=== PATIENT | male | born 1950 | race Caucasian/White ===

== ENCOUNTER 2021-08-31 13:26 | Inpatient (IN) | payer MEDICARE, SELFPAY ==
[2021-08-31] VITALS (47 sets, daily range): BP systolic 117–175; BP diastolic 61–98; PULSE 59–127; RESP 12–36; TEMP 36.4; O2SAT 90–96; BMI 23.8
--- NOTE | 2021-08-31 14:13 | ECG_ITS ---
[facility] Test Date: 2021-08-31 Pat Name: Rg Nye Department: Room: 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 Measurements Intervals [place] Rate: 72 P: 37 ID: 192 QRS: -18 QRSD: 101 T: 23 QT: 440 QTc: 483 Interpretive Statements SINUS RHYTHM NONSPECIFIC T-WAVE ABNORMALITY PROLONGED QT INTERVAL No previous ECG available for comparison Electronically Signed On 09-01-2021 4:47:59 [address] ENGINEER by Kelton Gutierrez M.D. [id number]
--- NOTE | 2021-08-31 14:18 | USCV_ITS ---
Popeye Rg Age: 71 Gender: M : 1950 Exam Date: 08/31/2021 15:13 Ordering Phys: Aureliano Smith MD Technologist: DARLENE Exam Location: [facility] [place] Indication: NSTEMI COVID DVT BP: / HR: 78 Rhythm: Sinus Technical Quality: Adequate MEASUREMENTS (Male / Female) Normal Values 2D ECHO LV Diastolic Diameter PLAX 3.0 cm 4.2 - 5.9 / 3.9 - 5.3 cm LV Systolic Diameter PLAX 2.2 cm IVS Diastolic Thickness 1.3 cm 0.6 - 1.0 / 0.6 - 0.9 cm IVS Systolic Thickness 1.7 cm LVPW Diastolic Thickness 1.2 cm 0.6 - 1.0 / 0.6 - 0.9 cm LVPW Systolic Thickness 1.4 cm LVOT Diameter 1.9 cm LV Ejection Fraction 2D Teich 57.4 % LV Ejection Fraction MOD 2C 42.0 % LV Ejection Fraction 2C AL 41.9 % LA Diameter 2.5 cm LA Width 3.5 cm LA Height 3.5 cm RA Width 3.6 cm RA Height 3.8 cm Aorta at Sinotubular Diameter 2.2 cm M-MODE Aortic Annulus Diameter 3.2 cm LA Ao Ratio MM 0.7 MV E Point Septal Separation 0.0 cm DOPPLER AV Peak Velocity 89.0 cm/s LVOT Peak Velocity 60.0 cm/s AV Area Cont Eq vti 2.3 cm squared AV Area Cont Eq pk 2.0 cm squared MV Area PHT 2.2 cm squared Mitral E to A Ratio 0.6 MV E' Velocity 24.5 cm/s Mitral E to MV E' Ratio 9.2 Mitral E to LV E' Lateral Ratio 8.7 Mitral E to LV E' Septal Ratio 9.8 TR Peak Velocity 191.0 cm/s TR Peak Gradient 14.6 mmHg TV Peak E Velocity 39.0 cm/s Right Atrial Pressure 5.0 mmHg Pulmonary Artery Systolic Pressu 19.6 mmHg PV Peak Velocity 87.0 cm/s RV Acceleration Time 0.1 s RV Ejection Time 0.3 s RV AcT/ET 0.2 FINDINGS Left Ventricle Normal left ventricular size and systolic function, EF 55 %. Mild left ventricular hypertrophy. No regional wall motion abnormalities. Grade I/IV diastolic dysfunction (abnormal relaxation filling pattern), normal to mildly elevated filling pressures. Right Ventricle Mildly dilated right ventricle with slightly diminished ejection fraction Right Atrium The right atrium is normal in size. Left Atrium The left atrium is normal in size. Mitral Valve Mild-moderate mitral valve regurgitation. Aortic Valve Thickened aortic valve. Tricuspid Valve Trace of tricuspid regurgitation . pulmonary artery systolic pressure is normal. This could be an underestimation because of the poor Doppler signals. Pulmonic Valve Trace pulmonary valve regurgitation. Pericardium Normal pericardium without effusion. Aorta Normal ascending aorta dimension. CONCLUSIONS Normal left ventricular size and systolic function, EF 55 %. Mild left ventricular hypertrophy. No regional wall motion abnormalities. Grade I/IV diastolic dysfunction (abnormal relaxation filling pattern), normal to mildly elevated filling pressures. Mild-moderate mitral valve regurgitation. Thickened aortic valve. Trace of tricuspid regurgitation . pulmonary artery systolic pressure is normal. This could be an underestimation because of the poor Doppler signals. No previous study is available for comparison. Dr Sergio Ponce MD [facility] (Electronically Signed) Final Date: 31 August 2021 17:31 S
--- NOTE | 2021-08-31 14:27 | PM.HP ---
Providers/Chief Complaint Admitting Physician: Aureliano Smith MD Chief Complaint: COVID History of Present Illness MAIRA MYEER is a 71 year old male with a past medical history of hypertension, prior smoker, who presents to [facility] due to shortness of breath, fatigue, malaise. Patient tells me that of August 22 he was not feeling well, having shortness of breath, fatigue, malaise, he tested positive for Covid on August 24. He continued to have worsening shortness of breath, fevers, fatigue, malaise. He denies a cardiovascular history. No history of strokes. History of smoking over 20 years ago. No history of diabetes. No recent travel. He has not been vaccinated for COVID-19. He presented to [facility] overnight, was diagnosed with COVID-19 pneumonia, with bilateral segmental and subsegmental PEs, with radiographic evidence of right heart strain with NSTEMI, hypoxic respiratory failure requiring 45 L 40%, was transferred to [facility] for further evaluation. He was given remdesivir, Decadron, therapeutic Lovenox, aspirin. Currently patient is alert oriented x3, follows all commands, currently on 45 L 40%, he tells that he is breathing better. Review of Systems Const: Reports: fever(s), body aches, fatigue and malaise; Denies: chills Eyes: Denies: change in vision or blurry vision ENMT: Denies: nasal congestion Card: Denies: chest pain, edema or lightheadedness Resp: Reports: dyspnea, non-productive cough and pain on inspiration; Denies: productive cough or wheezing GI: Denies: abdominal pain, nausea, vomiting, hematemesis, diarrhea, constipation, hematochezia or melena : Denies: flank pain, difficulty urinating, dysuria or urinary frequency Musc: Denies: neck pain or back pain Skin/Breast: Denies: rash Neuro: Denies: headache(s), dizziness or vertigo Endo: Denies: polyuria or polydipsia PFSH Acute PFSH: Medical History (Updated 08/31/21 @ 14:32 by Aureliano Smith MD) History of hypertension Surgical History (Updated 08/31/21 @ 14:30 by Aureliano Smith MD) History of cholecystectomy Family History (Updated 08/31/21 @ 14:31 by Aureliano Smith MD) Father Liver cancer Mother GI bleed Social History (Updated 08/31/21 @ 14:31 by Aureliano Smith MD) Smoking and tobacco status: former smoker Alcohol intake: never Substance/Drug Use: never Vitals/I&O/Wt Last Vital Signs Pulse 85 08/31/21 13:38 Resp 20 H 08/31/21 13:34 Pulse Ox 94 08/31/21 13:34 Physical Exam Const: COMMON NORMALS: no acute distress and patient oriented x3 GENERAL APPEARANCE: cooperative and comfortable HENMT: COMMON NORMALS: normocephalic HEAD & SCALP: normocephalic Eye: COMMON NORMALS: Equal, round and reactive pupils present and EOMs intact bilaterally GENERAL EYE: appearance normal, both eyes and all related structures PUPIL: Yes Equal, round and reactive pupils present Neck/C-Spine: COMMON NORMALS: full ROM and no lymphadenopathy THYROID: Thyroid normal Lymph: LYMPHATIC: no lymphadenopathy noted Resp: COMMON NORMALS: normal respiratory effort, No retractions, No use of accessory muscles and clear to auscultation bilaterally AUSCULTATION: diminished lung sounds diffuse Cardio: COMMON NORMALS: regular rate, regular rhythm, S1 normal heart sound present, S2 normal heart sound present, No gallops present (Cardio), No clicks present (Cardio) and No murmurs present (Cardio) RATE: regular rate RHYTHM: regular rhythm HEART SOUNDS: S1 normal heart sound present and S2 normal heart sound present GI: COMMON NORMALS: Normal to inspection, nondistended, normoactive bowel sounds present, Soft to palpation, non-tender and No hepatosplenomegaly present PALPATION: Yes Soft to palpation and Yes No hepatosplenomegaly present Extremity: COMMON NORMALS: normal to inspection, full ROM and no pedal edema Neuro: COMMON NORMALS: patient oriented x3, CN's II-XII intact bilaterally, moves all extremities and no focal motor deficits Psych: COMMON NORMALS: mental status grossly normal, Normal thought process present and cooperative THOUGHT PROCESS: Normal thought process present A&P Assessment and plan (1) Acute respiratory failure with hypoxia: -Acute hypoxic respiratory failure secondary to COVID-19 pneumonia -With evidence of acute respiratory distress syndrome -With evidence of bilateral segmental and subsegmental PEs -With evidence of right heart strain -With evidence of COVID-19 myocarditis, NSTEMI -Elevated troponins, NSTEMI, cannot rule out underlying cardiac etiology given age, hypertension, underlying cardiac history Plan: -Admit to ICU -Monitor respiratory status closely -Sputum cultures, blood cultures, urine bacterial antigen, rapid flu -Remdesivir day one of five -Decadron day one of five -Actemra one dose -Therapeutic Lovenox -Serial troponins, serial EKGs, telemetry monitoring, cardiac echo, monitor chest pain -Aspirin, statin -Continue heated high flow, can consider BiPAP therapy -Vitamin C, zinc vitamin D - budesonide, DuoNeb -Incentive spirometer, flutter valve -Full code -Lovenox for DVT prophylaxis Status: Acute (2) Bilateral pulmonary embolism: Status: Acute (3) NSTEMI (non-ST elevated myocardial infarction): Status: Acute (4) Myocarditis due to COVID-19 virus: Status: Acute (5) Acute respiratory distress syndrome: Status: Acute (6) Pneumonia due to COVID-19 virus: Status: Acute Attestations Medical Necessity Statement*: Patient requires hospitalization for acute respiratory failure with hypoxia secondary COVID-19 pneumonia, NSTEMI, bilateral PEs, COVID-19 due to myocarditis, right heart strain requiring inpatient admission, greater than two midnights, critical care time spent over 1 hour Coding Level of Care Code Acute 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
[2021-08-31] MEDS: budesonide 0.5 mg/2 mL Neb INHALATION ×2 (14:57→20:24)
[2021-08-31] MEDS: pantoprazole 40 mg SDV IVP (15:26)
[2021-08-31] MEDS: azithromycin 500 MG in sodium chloride 0.9% 250 ML 250 MG IV (15:27)
[2021-08-31] MEDS: cefepime 2,000 MG in sodium chloride 0.9% (plus) 50 ML 100 MG IV (15:27)
[2021-08-31] MEDS: FUROsemide 10 mg/mL SDV 2mL 20 MG IVP (15:27)
[2021-08-31] MEDS: enoxaparin 80 mg/0.8 mL Syringe 70 MG SUBCUT (15:28)
[2021-08-31] MEDS: dexamethasone 10 mg/mL INJ 6 MG IVP (15:29)
[2021-08-31 15:38] LABS: Estmated Average Glucose 137; Hemoglobin A1C 6.4 % (4.0-6.0)
[2021-08-31 15:52] LABS: Troponin(5th) Baseline 137 ng/L (0-15)
[2021-08-31 15:55] LABS: Thyroid Stimulating Hormone 0.29 uIU/mL (0.27-4.20)
[2021-08-31 15:56] LABS: Creatinine Clr Calc Pharmacy 74.1927
--- NOTE | 2021-08-31 16:13 | ECG_ITS ---
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 Measurements Intervals [place] Rate: 77 P: 41 NV: 194 QRS: -9 QRSD: 101 T: 22 QT: 435 QTc: 493 Interpretive Statements SINUS RHYTHM NONSPECIFIC T-WAVE ABNORMALITY PROLONGED QT INTERVAL Compared to ECG 08/31/2021 14:37:10 No significant changes Electronically Signed On 09-01-2021 4:51:[address] by Kelton Gutierrez M.D. [id number]
[2021-08-31 16:42] LABS: Influenza A by IFA Negative (Negative); Influenza B by IFA Negative (Negative)
[2021-08-31] MEDS: ascorbic acid 500 mg Tablet PO (17:28)
[2021-08-31] MEDS: docusate sodium 100 mg Capsule PO (17:28)
[2021-08-31] MEDS: vancomycin 1,000 MG in sodium chloride 0.9% 250 ML 250 MG IV (17:28)
[2021-08-31 18:06] LABS: Troponin 5 2HR Delta -3.6 ABS# (0-10)
[2021-08-31 18:10] LABS: Troponin 5 2HR 133.4 ng/L (0-15)
--- NOTE | 2021-08-31 20:13 | ECG_ITS ---
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 Measurements Intervals [place] Rate: 69 P: 49 ME: 207 QRS: -5 QRSD: 93 T: 7 QT: 448 QTc: 482 Interpretive Statements SINUS RHYTHM MODERATE T-WAVE ABNORMALITY, CONSIDER ANTERIOR ISCHEMIA [-0.1+ mV T-WAVE IN V3/V4] Compared to ECG 08/31/2021 16:42:42 Possible ischemia now present Prolonged QT interval no longer present T-wave abnormality still present Electronically Signed On 09-01-2021 4:51:15 SALES SUPPORT MANAGER by Kelton Gutierrez M.D. [id number]
[2021-08-31] MEDS: atorvastatin 40 mg Tablet PO (21:34)
[2021-08-31 21:42] LABS: Troponin 5 6HR Delta -18.7 ng/L (0-12)
[2021-08-31 21:43] LABS: Troponin 5 6HR 118.3 ng/L (0-15)
[2021-08-31 22:25] LABS: Glucose Point of Care 194 mg/dL (70-110)
[2021-09-01] VITALS (33 sets, daily range): BP systolic 109–145; BP diastolic 60–84; PULSE 52–76; RESP 17–31; TEMP 35.9–36.8; O2SAT 89–98
[2021-09-01] MEDS: pantoprazole 40 mg SDV IVP ×2 (02:00→14:35)
[2021-09-01] MEDS: cefepime 2,000 MG in sodium chloride 0.9% (plus) 50 ML 100 MG IV ×2 (02:00→14:34)
[2021-09-01 03:45] LABS: ABG PCO2 33.9 mmHg (35-45); ABG PH Result 7.53 (7.35-7.45); Arterial Blood Gas Hematocrit 54.8 % (42-52); Base Excess ABG 5.5 mmol/L (-2.0-2.0); Blood Gas Operator Identificat JB; Blood Gas Sample Site Brachial, right; Blood Gas Sample Type Arterial; Oxygen Device HAG
[2021-09-01 04:17] LABS: Basophils % 0.1 %; Hematocrit 40.4 % (42.0-52.0); Hemoglobin 13.8 g/dL (11.7-16.6); Lymphocytes # 0.7 10^3/uL (0.8-4.8); Lymphocytes % 6.9 %; Mean Corpuscular HGB Conc 34.2 g/dL (30.0-36.0); Mean Corpuscular Hemoglobin 31.8 pg (28.0-34.0); Mean Corpuscular Volume 93.1 fl (80-94); Mean Platelet Volume 10.5 fL (7.4-10.4); Monocytes # 0.5 10^3/uL (0.2-0.9); Monocytes % 4.3 %; Neutrophils # 9.53 10^3/uL (1.8-7.7); Neutrophils % 88.2 %; Nucleated Red Blood Cells % 0 %; Platelet Count 147 10^3/cmm (130-400); Red Blood Count 4.34 10^6/uL (4.1-5.3); White Blood Count 10.8 10^3/uL (4.0-10.0)
[2021-09-01] MEDS: vancomycin 1,000 MG in sodium chloride 0.9% 250 ML 250 MG IV ×2 (04:28→16:29)
[2021-09-01] MEDS: enoxaparin 80 mg/0.8 mL Syringe 65 MG SUBCUT ×2 (04:29→16:30)
[2021-09-01 04:30] LABS: Lactic Sepsis W/Reflex 1.6 mmol/L (0.5-2.2)
[2021-09-01 04:31] LABS: Alanine Aminotransferase 44 U/L (0-41); Albumin Level 2.7 g/dL (3.5-5.2); Alkaline Phosphatase 66 IU/L (40-130); Blood Urea Nitrogen 20 mg/dL (8-23); Calcium 7.8 mg/dL (8.5-10.5); Carbon Dioxide 21 mmol/L (22-29); Chloride 103 mmol/L (98-107); Creatinine Clr Calc Pharmacy 74.1927; Globulin 3.2 g/dL (1.3-4.6); Glucose 156 mg/dL (65-115); Magnesium 2.3 mg/dL (1.7-2.3); Osmolality Calculated 298 mOsm/kg (285-295); Phosphorus 2.4 mg/dL (2.5-4.5); Sodium 141 mmol/L (136-145); Total Bilirubin 0.7 mg/dL (0.15-1.2); Total Protein 5.9 g/dL (6.6-8.7)
[2021-09-01 04:56] LABS: Anion Gap 21.9 (5-19); Aspartate Amino Transferase 40 U/L (0-40); Potassium 4.9 mmol/L (3.5-5.1)
[2021-09-01 05:04] LABS: INR 1.24 (0.8-1.2)
[2021-09-01] MEDS: remdesivir 100 MG in sodium chloride 0.9% (100 ml) 80 ML IV (05:59)
[2021-09-01 08:22] LABS: Glucose Point of Care 138 mg/dL (70-110)
[2021-09-01] MEDS: budesonide 0.5 mg/2 mL Neb INHALATION ×2 (08:41→19:46)
[2021-09-01 09:57] LABS: NT Pro B Type Natriuretic Pept 2218 pg/mL (0-125); Procalcitonin 0.64 ng/mL (0-0.5)
[2021-09-01] MEDS: zinc gluconate 50 mg Tablet PO (10:02)
[2021-09-01] MEDS: cholecalciferol (vitamin D3) 1,000 unit Tablet 1000 UNIT PO (10:02)
[2021-09-01] MEDS: ascorbic acid 500 mg Tablet PO ×2 (10:02→17:20)
[2021-09-01] MEDS: aspirin 81 mg EC Tablet PO (10:03)
--- NOTE | 2021-09-01 10:03 | PC.NURSE ---
MAR other delay related to emergency in ICU unit.
[2021-09-01 10:08] LABS: C Reactive Protein 159.4 mg/L (0.0-4.9); Creatine Phosphokinase 30 U/L (39-308)
[2021-09-01 12:11] LABS: Glucose Point of Care 254 mg/dL (70-110)
[2021-09-01] MEDS: insulin lispro 100 unit/1 mL SUBCUT ×2 (12:42→17:20)
--- NOTE | 2021-09-01 14:18 | USCV_ITS ---
Rg Nye Age: 71 Gender: M : 1950 Exam Date: 09/01/2021 07:22 Ordering Phys: Aureliano Smith MD Technologist: ROMMEL Exam Location: [facility] [place] Indication: DVT HISTORY: Covid PROCEDURES: Comparison: none available. Venous duplex imaging was performed in bilateral lower extremities. The following venous structures were evaluated: common femoral vein, profunda vein, proximal portion of the greater saphenous vein, superficial femoral vein, and the popliteal vein. In addition, the posterior tibial and peroneal trunk were evaluated. Serial compression, augmentation maneuvers, and spectral Doppler flow evaluation were performed. FINDINGS: No evidence of DVT seen in any vessel visualized at this time. CONCLUSIONS No evidence of DVT in the above-mentioned identifiable veins. Dr Sergio Ponce MD [facility] (Electronically Signed) Final Date: 01 September 2021 10:07 S
[2021-09-01] MEDS: dexamethasone 10 mg/mL INJ 6 MG IVP (14:35)
[2021-09-01] MEDS: azithromycin 500 MG in sodium chloride 0.9% 250 ML 250 MG IV (15:16)
--- NOTE | 2021-09-01 16:31 | P.PN_ITS ---
Subjective Subjective: Interval history: Patient was seen this morning, he has done well overnight, no fevers, chills, nausea, vomiting, no chest pain, no palpitations Vitals/I&O/Wt Last Vital Signs Temp 96.7 F L 09/01/21 08:00 Pulse 76 09/01/21 16:00 Resp 31 H 09/01/21 16:00 BP 120/68 09/01/21 16:00 Pulse Ox 96 09/01/21 16:00 09/01/21 09/01/21 09/01/21 06:59 14:59 22:59 Intake Total 418 / 1494.9 1230 / 1230 50 / 1280 Balance 418 / 669.9 1230 / 1230 50 / 1280 Weight last 48 hrs Weight 63.957 kg Weight 64.864 kg Physical Exam Const: COMMON NORMALS: no acute distress and patient oriented x3 Resp: COMMON NORMALS: normal respiratory effort, No retractions and No use of accessory muscles AUSCULTATION: diminished lung sounds diffuse Cardio: COMMON NORMALS: regular rate, regular rhythm, S1 normal heart sound present and S2 normal heart sound present RATE: regular rate RHYTHM: regular rhythm HEART SOUNDS: S1 normal heart sound present and S2 normal heart sound present GI: COMMON NORMALS: Normal to inspection, nondistended, normoactive bowel sounds present, Soft to palpation, non-tender and No hepatosplenomegaly present PALPATION: Yes Soft to palpation and Yes No hepatosplenomegaly present Extremity: COMMON NORMALS: no pedal edema Neuro: COMMON NORMALS: patient oriented x3 Psych: COMMON NORMALS: mental status grossly normal Urinary Catheter Management^: Juarez: Cath Placed During This Visit: yes Reason for Continuing Indwelling Catheter: Accurate Measurement of Urinary Output in Critically Ill Patients Urinary Catheter Date of Insertion: 08/31/21 Urinary Catheter Time of Insertion: 16:30 Data : 09/01/21 03:40 09/01/21 03:40 Micro: Microbiology 08/31/21 15:11 Blood Culture - Preliminary Blood NEGATIVE TO DATE 08/31/21 15:07 Blood Culture - Preliminary Blood NEGATIVE TO DATE 08/31/21 16:15 Legionella Urinary Antigen - Final Urine,Clean Catch Bacterial Antigens - Final A&P Assessment and plan (1) Acute respiratory failure with hypoxia: -Acute hypoxic respiratory failure secondary to COVID-19 pneumonia -With evidence of acute respiratory distress syndrome -With evidence of bilateral segmental and subsegmental PEs -With evidence of right heart strain -With evidence of COVID-19 myocarditis, NSTEMI -Elevated troponins, NSTEMI, cannot rule out underlying cardiac etiology given age, hypertension, underlying cardiac history Plan: -We will de-escalate to general medical floors -Monitor respiratory status closely -Sputum cultures, blood cultures, urine bacterial antigen, rapid flu -Remdesivir day 2 of 5 -Decadron day 2 of 5 -Actemra one dose 08/31/2021 -Therapeutic Lovenox -Serial troponins, 6-hour troponin 118, delta 18.7, serial EKGs no acute ST-T wave changes, telemetry monitoring, cardiac echo shows EF of 55%, mild LVH, no regional wall motion abnormalities, grade 1 out of 4 diastolic dysfunction, monitor chest pain -Aspirin, statin -Continue heated high flow, can consider BiPAP therapy -Vitamin C, zinc vitamin D - budesonide, DuoNeb -Incentive spirometer, flutter valve -Daily dose Lasix -Full code -Lovenox for DVT prophylaxis Status: Acute (2) Bilateral pulmonary embolism: Status: Acute (3) NSTEMI (non-ST elevated myocardial infarction): Status: Acute (4) Myocarditis due to COVID-19 virus: Status: Acute (5) Acute respiratory distress syndrome: Status: Acute (6) Pneumonia due to COVID-19 virus: Status: Acute Attestations Medical Necessity Statement*: Patient requires hospitalization for COVID-19 pneumonia, bilateral PEs, NSTEMI, COVID-19 myocarditis, critical care time spent over 35 minutes Coding Level of Care Code 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 Radhames Diagnoses Acute respiratory failure with hypoxia J96.01 Bilateral pulmonary embolism I26.99 NSTEMI (non-ST elevated myocardial infarction) I21.4 Myocarditis due to COVID-19 virus U07.1; I40.0 Acute respiratory distress syndrome J80 Pneumonia due to COVID-19 virus U07.1; J12.82
[2021-09-01 16:49] LABS: Glucose Point of Care 168 mg/dL (70-110)
[2021-09-01] MEDS: FUROsemide 10 mg/mL SDV 4mL 40 MG IVP (17:20)
--- NOTE | 2021-09-01 17:55 | PC.NURSE ---
Report faxed to [facility].
--- NOTE | 2021-09-01 17:55 | PC.NURSE ---
Shift Note: Pleasant patient. He has st up in a chair since before lunch. His O2 has been reduced from Heated high flow 35 liters and 45% to high flow nasal cannula at 8lpm today. His O2 sats decrease with exertion but he recovers quickly. Lungs sounds are dminished , cecilia. in bases, bilaterally. VSS. No edema. He has a good appetite eating most of his meals. He likes milk. He has be to BSC with 1 assist, very small BM. 300ml Urine output this shift. Lasix administered afterwards. Frequent safety and comfort rounds continue. Orders and/or nursing care completed as indicated. Patient monitored for response to intervention and treatment(s). Education provided includes antibiotics: vancomycin, cefepime azithromycin and vitsmin supplements. IS and flutter valve use. Patient verbalizes understanding of continuing plan of care and medications. Will continue to monitor.
--- NOTE | 2021-09-01 18:18 | PC.NURSE ---
Report called to [facility] and given to SIMEON Fleming.
--- NOTE | 2021-09-01 18:45 | PC.NURSE ---
Pt transferred to [facility]. Via W/C. All belongings with pt.
[2021-09-01] MEDS: atorvastatin 40 mg Tablet PO (20:27)
[2021-09-01 20:59] LABS: Glucose Point of Care 220 mg/dL (70-110)
[2021-09-02] VITALS (14 sets, daily range): BP systolic 130–159; BP diastolic 74–80; PULSE 52–81; RESP 16–20; TEMP 36.6–36.7; O2SAT 85–95
[2021-09-02] MEDS: cefepime 2,000 MG in sodium chloride 0.9% (plus) 50 ML 100 MG IV ×2 (02:24→14:00)
[2021-09-02] MEDS: pantoprazole 40 mg SDV IVP ×2 (02:24→14:05)
[2021-09-02 03:49] LABS: Basophils % 0.1 %; Hematocrit 39.3 % (42.0-52.0); Hemoglobin 13.1 g/dL (11.7-16.6); Lymphocytes # 0.7 10^3/uL (0.8-4.8); Mean Corpuscular HGB Conc 33.3 g/dL (30.0-36.0); Mean Corpuscular Hemoglobin 31.5 pg (28.0-34.0); Mean Corpuscular Volume 94.5 fl (80-94); Mean Platelet Volume 9.9 fL (7.4-10.4); Monocytes # 0.4 10^3/uL (0.2-0.9); Monocytes % 3.5 %; Neutrophils % 90.1 %; Nucleated Red Blood Cells % 0 %; Platelet Count 242 10^3/cmm (130-400); Red Blood Count 4.16 10^6/uL (4.1-5.3); Red Cell Distribution Width 12.2 % (12.1-15.1); White Blood Count 12.4 10^3/uL (4.0-10.0)
[2021-09-02 04:08] LABS: INR 1.34 (0.8-1.2)
[2021-09-02 04:14] LABS: NT Pro B Type Natriuretic Pept 1185 pg/mL (0-125); Procalcitonin 0.41 ng/mL (0-0.5)
[2021-09-02 04:18] LABS: ABG PCO2 34.4 mmHg (35-45); ABG PH Result 7.51 (7.35-7.45); Arterial Blood Gas Hematocrit 40.4 % (42-52); Base Excess ABG 4.6 mmol/L (-2.0-2.0); Blood Gas Allen Test Pos; Blood Gas Sample Site Brachial, right; Blood Gas Sample Type Arterial; HCO3 ABG 27.5 mmol/L (22-26); Oxygen Device NC; PO2 ABG 64.8 mmHg (80.0-100.0)
[2021-09-02] MEDS: vancomycin 1,000 MG in sodium chloride 0.9% 250 ML 250 MG IV ×2 (04:22→16:17)
[2021-09-02] MEDS: enoxaparin 80 mg/0.8 mL Syringe 65 MG SUBCUT ×2 (04:23→16:16)
[2021-09-02 04:25] LABS: Alanine Aminotransferase 37 U/L (0-41); Albumin Level 2.7 g/dL (3.5-5.2); Alkaline Phosphatase 71 IU/L (40-130); Anion Gap 16.2 (5-19); Aspartate Amino Transferase 27 U/L (0-40); Blood Urea Nitrogen 28 mg/dL (8-23); C Reactive Protein 74.3 mg/L (0.0-4.9); Calcium 7.8 mg/dL (8.5-10.5); Carbon Dioxide 24 mmol/L (22-29); Chloride 105 mmol/L (98-107); Creatine Phosphokinase 27 U/L (39-308); Globulin 3.5 g/dL (1.3-4.6); Glucose 146 mg/dL (65-115); Magnesium 2.3 mg/dL (1.7-2.3); Osmolality Calculated 300 mOsm/kg (285-295); Potassium 4.2 mmol/L (3.5-5.1); Sodium 141 mmol/L (136-145); Total Bilirubin 0.5 mg/dL (0.15-1.2); Total Protein 6.2 g/dL (6.6-8.7)
[2021-09-02] MEDS: remdesivir 100 MG in sodium chloride 0.9% (100 ml) 80 ML IV (05:47)
[2021-09-02 06:53] LABS: Glucose Point of Care 139 mg/dL (70-110)
[2021-09-02] MEDS: FUROsemide 10 mg/mL SDV 4mL 40 MG IVP (07:26)
[2021-09-02] MEDS: metOLazone 5 MG Tablet 10 MG PO (07:27)
[2021-09-02] MEDS: potassium chloride ER 20 mEq Tablet PO (07:27)
[2021-09-02] MEDS: budesonide 0.5 mg/2 mL Neb INHALATION ×2 (08:29→21:20)
[2021-09-02] MEDS: zinc gluconate 50 mg Tablet PO (08:48)
[2021-09-02] MEDS: cholecalciferol (vitamin D3) 1,000 unit Tablet 1000 UNIT PO (08:48)
[2021-09-02] MEDS: docusate sodium 100 mg Capsule PO ×2 (08:48→16:18)
[2021-09-02] MEDS: aspirin 81 mg EC Tablet PO (08:48)
[2021-09-02] MEDS: ascorbic acid 500 mg Tablet PO ×2 (08:48→16:18)
[2021-09-02 12:36] LABS: Glucose Point of Care 216 mg/dL (70-110)
[2021-09-02] MEDS: insulin lispro 100 unit/1 mL SUBCUT (13:56)
[2021-09-02] MEDS: azithromycin 500 MG in sodium chloride 0.9% 250 ML 250 MG IV (13:59)
[2021-09-02] MEDS: dexamethasone 10 mg/mL INJ 6 MG IVP (14:05)
--- NOTE | 2021-09-02 14:54 | P.PN_ITS ---
Subjective Subjective: Interval history: Patient was seen this morning, currently on 7 L, no nausea, no vomiting, no chest pain, he is feeling a lot better he tells me having a productive cough Vitals/I&O/Wt Last Vital Signs Temp 97.9 F 09/02/21 12:00 Pulse 75 09/02/21 12:00 Resp 20 H 09/02/21 12:00 BP 132/74 09/02/21 12:00 Pulse Ox 93 09/02/21 12:00 09/01/21 09/02/21 09/02/21 22:59 06:59 14:59 Intake Total 970 / 2200 380 / 2580 290 / 290 Output Total 300 / 300 1050 / 1350 Balance 670 / 1900 -670 / 1230 290 / 290 Weight last 48 hrs Weight 63.957 kg Physical Exam Const: COMMON NORMALS: no acute distress and patient oriented x3 Resp: COMMON NORMALS: normal respiratory effort, No retractions and No use of accessory muscles AUSCULTATION: crackles Cardio: COMMON NORMALS: regular rate, regular rhythm, S1 normal heart sound p resent and S2 normal heart sound present RATE: regular rate RHYTHM: regular rhythm HEART SOUNDS: S1 normal heart sound present and S2 normal heart sound present GI: COMMON NORMALS: Normal to inspection, nondistended, normoactive bowel sounds present, Soft to palpation and non-tender PALPATION: Yes Soft to palpation Extremity: COMMON NORMALS: no pedal edema Neuro: COMMON NORMALS: patient oriented x3 Psych: COMMON NORMALS: mental status grossly normal Urinary Catheter Management^: Juarez: Cath Placed During This Visit: yes Reason for Continuing Indwelling Catheter: Accurate Measurement of Urinary Output in Critically Ill Patients Urinary Catheter Date of Insertion: 08/31/21 Urinary Catheter Time of Insertion: 16:30 Data : 09/02/21 03:35 09/02/21 03:35 Micro: Microbiology 08/31/21 15:11 Blood Culture - Preliminary Blood NEGATIVE TO DATE 08/31/21 15:07 Blood Culture - Preliminary Blood NEGATIVE TO DATE A&P Assessment and plan (1) Acute respiratory failure with hypoxia: -Acute hypoxic respiratory failure secondary to COVID-19 pneumonia -With evidence of acute respiratory distress syndrome -With evidence of bilateral segmental and subsegmental PEs -With evidence of right heart strain -With evidence of COVID-19 myocarditis, NSTEMI -Elevated troponins, NSTEMI, cannot rule out underlying cardiac etiology given age, hypertension, underlying cardiac history Plan: -Currently on general medical floors -Monitor respiratory status closely -Sputum cultures, blood cultures, urine bacterial antigen, rapid flu -Remdesivir day 3 of 5 -Decadron day 3 of 5 -Actemra one dose 08/31/2021 -Therapeutic Lovenox -Serial troponins, 6-hour troponin 118, delta 18.7, serial EKGs no acute ST-T wave changes, telemetry monitoring, cardiac echo shows EF of 55%, mild LVH, no regional wall motion abnormalities, grade 1 out of 4 diastolic dysfunction, mo nitor chest pain -Aspirin, statin -Continue nasal cannula -Vitamin C, zinc vitamin D - budesonide, DuoNeb -Incentive spirometer, flutter valve -Daily dose Lasix, 2 doses today, BNP 1185 -Full code -Lovenox for DVT prophylaxis Status: Acute (2) Bilateral pulmonary embolism: Status: Acute (3) NSTEMI (non-ST elevated myocardial infarction): Status: Acute (4) Myocarditis due to COVID-19 virus: Status: Acute (5) Acute respiratory distress syndrome: Status: Acute (6) Pneumonia due to COVID-19 virus: Status: Acute Attestations Medical Necessity Statement*: Patient requires hospitalization for acute respiratory failure with hypoxia secondary COVID-19 Coding Level of Care Code 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
[2021-09-02] MEDS: acetaminophen 325 mg Tablet 650 MG PO (16:17)
[2021-09-02] MEDS: FUROsemide 10 mg/mL SDV 4mL 20 MG IVP (16:17)
[2021-09-02 17:14] LABS: Glucose Point of Care 132 mg/dL (70-110)
[2021-09-02] MEDS: atorvastatin 40 mg Tablet PO (20:58)
[2021-09-02 21:16] LABS: Glucose Point of Care 150 mg/dL (70-110)
[2021-09-03] VITALS (9 sets, daily range): BP systolic 121–132; BP diastolic 69–79; PULSE 60–85; RESP 16–20; TEMP 36.4–36.7; O2SAT 88–98
[2021-09-03] MEDS: cefepime 2,000 MG in sodium chloride 0.9% (plus) 50 ML 100 MG IV (02:12)
[2021-09-03] MEDS: pantoprazole 40 mg SDV IVP (02:13)
[2021-09-03] MEDS: vancomycin 1,000 MG in sodium chloride 0.9% 250 ML 250 MG IV (04:45)
[2021-09-03] MEDS: enoxaparin 80 mg/0.8 mL Syringe 65 MG SUBCUT (04:45)
[2021-09-03] MEDS: remdesivir 100 MG in sodium chloride 0.9% (100 ml) 80 ML IV (06:22)
[2021-09-03 06:47] LABS: Glucose Point of Care 122 mg/dL (70-110)
[2021-09-03 07:19] LABS: Basophils % 0.1 %; Hematocrit 40.8 % (42.0-52.0); Hemoglobin 13.7 g/dL (11.7-16.6); Lymphocytes # 0.9 10^3/uL (0.8-4.8); Lymphocytes % 8.7 %; Mean Corpuscular HGB Conc 33.6 g/dL (30.0-36.0); Mean Corpuscular Hemoglobin 31.8 pg (28.0-34.0); Mean Corpuscular Volume 94.7 fl (80-94); Mean Platelet Volume 10.2 fL (7.4-10.4); Monocytes # 0.6 10^3/uL (0.2-0.9); Monocytes % 5.5 %; Neutrophils % 85.1 %; Nucleated Red Blood Cells % 0 %; Platelet Count 320 10^3/cmm (130-400); Red Blood Count 4.31 10^6/uL (4.1-5.3); Red Cell Distribution Width 12.1 % (12.1-15.1); White Blood Count 10.8 10^3/uL (4.0-10.0)
[2021-09-03 07:43] LABS: Alanine Aminotransferase 47 U/L (0-41); Albumin Level 2.9 g/dL (3.5-5.2); Alkaline Phosphatase 70 IU/L (40-130); Anion Gap 16.6 (5-19); Aspartate Amino Transferase 30 U/L (0-40); Blood Urea Nitrogen 27 mg/dL (8-23); Calcium 8.2 mg/dL (8.5-10.5); Carbon Dioxide 26 mmol/L (22-29); Chloride 100 mmol/L (98-107); Globulin 3.5 g/dL (1.3-4.6); Glucose 123 mg/dL (65-115); Magnesium 2.2 mg/dL (1.7-2.3); Osmolality Calculated 292 mOsm/kg (285-295); Phosphorus 3.2 mg/dL (2.5-4.5); Potassium 4.6 mmol/L (3.5-5.1); Sodium 138 mmol/L (136-145); Total Bilirubin 0.7 mg/dL (0.15-1.2); Total Protein 6.4 g/dL (6.6-8.7)
[2021-09-03 07:51] LABS: Procalcitonin 0.23 ng/mL (0-0.5)
[2021-09-03 07:52] LABS: NT Pro B Type Natriuretic Pept 396 pg/mL (0-125)
[2021-09-03] MEDS: budesonide 0.5 mg/2 mL Neb INHALATION (08:51)
[2021-09-03] MEDS: aspirin 81 mg EC Tablet PO (10:43)
[2021-09-03] MEDS: docusate sodium 100 mg Capsule PO (10:43)
[2021-09-03] MEDS: zinc gluconate 50 mg Tablet PO (10:43)
[2021-09-03] MEDS: ascorbic acid 500 mg Tablet PO (10:44)
[2021-09-03] MEDS: cholecalciferol (vitamin D3) 1,000 unit Tablet 1000 UNIT PO (10:44)
[2021-09-03 12:01] LABS: Glucose Point of Care 153 mg/dL (70-110)
--- NOTE | 2021-09-03 13:44 | PC.SOCIAL ---
IMM Update pg 2 of IMM updated and reviewed w/ patient. Copy provided.
--- NOTE | 2021-09-03 14:46 | PM.DCS ---
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 Patient tells me that of August 22 he was not feeling well, having shortness of breath, fatigue, malaise, he tested positive for Covid on August 24.He continued to have worsening shortness of breath, fevers, fatigue, malaise.He has not been vaccinated for COVID-19. He presented to [facility] overnight, was diagnosed with COVID-19 pneumonia, with bilateral segmental and subsegmental PEs, with radiographic evidence of right heart strain with NSTEMI, hypoxic respiratory failure requiring 45 L 40%, was transferred to [facility] for further evaluation. During the hospital stay he was managed for Acute hypoxic respiratory failure secondary 2/2 ARDS 2/2 COVID-19 pneumonia as well as Ac P/E, as well as TYPE II NSTEMI 2/2 demand ischemia 2/2 to P/E as well as COVID PNA, he was kept on covid protocol ( Dexamethasone, Remdesivir, s/P one dose actemra,nebs, Therapeutic Ac, suplemental oxygen as needed, vitamin c, zinc,Incentive spirometer, flutter valve,lasix as needed), for his NSTEMI Typ II 2D echo : EF of 55%, mild LVH, no regional wall motion abnormalities, grade 1 out of 4 diastolic dysfunction, monitor chest pain, he was kept on aspirin and statin,he denied ay chest pain, palpitation, for his acute P/E he was discharged on eliquis,he responded well to above medical management and was discharged in stable condition to home on discharge he qualified for 2 Ls home oxygen he has been discharged on po dexamethasone as well as albuterol inhaler and budesonide inhaler as well as teslon pearls as needed.He will follow up with his pcp as outpatient. Physical Exam Const: COMMON NORMALS: patient oriented x3 HENMT: COMMON NORMALS: normocephalic and atraumatic HEAD & SCALP: normocephalic and atraumatic Resp: COMMON NORMALS: clear to auscultation bilaterally AUSCULTATION: clear to auscultation bilaterally Cardio: COMMON NORMALS: regular rate, regular rhythm, S1 normal heart sound present, S2 normal heart sound present, No gallops present (Cardio), No murmurs present (Cardio), No rub (Cardio) and Peripheral pulses 2+ throughout RATE: regular rate RHYTHM: regular rhythm HEART SOUNDS: S1 normal heart sound present and S2 normal heart sound present PERIPHERAL PULSES: Peripheral pulses 2+ throughout GI: COMMON NORMALS: Normal to inspection, nondistended, normoactive bowel sounds present, Soft to palpation, non-tender, No hepatosplenomegaly present and no masses AUSCULTATION: Yes normoactive bowel sounds PALPATION: Yes Soft to palpation and Yes No hepatosplenomegaly present RECTAL EXAM: Yes deferred Extremity: COMMON NORMALS: no clubbing, cyanosis or edema and no pedal edema Neuro: COMMON NORMALS: patient oriented x3 Urinary Catheter Management^: Juarez: Cath Placed During This Visit: yes Reason for Continuing Indwelling Catheter: Accurate Measurement of Urinary Output in Critically Ill Patients Urinary Catheter Date of Insertion: 08/31/21 Urinary Catheter Time of Insertion: 16:30 Discharge Data Data Completed and Pending: Completed Studies During Hospitalization Category Date [place] [id number] Routin e Ultrasound 09/01/21 14:18 Completed CV. echo complete * [id number] Routine Ultrasound 08/31/21 14:18 Completed Pending at discharge Category Date Time Status Blood Culture Sta t Lab 08/31/21 15:11 Results Sputum Culture an d Gram Stain Stat Lab 09/03/21 08:49 Results Labs from last 24 hours 09/03/21 09/03/21 09/03/21 11:43 06:36 06:31 WBC RBC Hgb Hct MCV MCH MCHC RDW Plt Count MPV Neut % (Auto) Lymph % (Auto) [place] % (Auto) Eos % (Auto) Baso % (Auto) Neut # (Auto) Lymph # (Auto) [place] # (Auto) Eos # (Auto) Baso # (Auto) Nucleated RBC % (a uto) Nucleated RBCs # Sodium Potassium Chloride Carbon Dioxide Anion Gap BUN Creatinine GFR Calculation Glucose POC Glucose 153 H 122 H Calculated Osmolal ity Calcium Phosphorus Magnesium Total Bilirubin AST ALT Alkaline Phosphata se C-Reactive Protein NT-Pro-B Natriuret Pep Total Protein Albumin Globulin Procalcitonin 0.23 09/03/21 09/03/21 09/03/21 06:31 06:31 06:31 WBC 10.8 H RBC 4.31 Hgb 13.7 Hct 40.8 L MCV 94.7 H MCH 31.8 MCHC 33.6 RDW 12.1 Plt Count 320 D MPV 10.2 Neut % (Auto) 85.1 Lymph % (Auto) 8.7 [place] % (Auto) 5.5 Eos % (Auto) 0.0 Baso % (Auto) 0.1 Neut # (Auto) 9.20 H Lymph # (Auto) 0.9 [place] # (Auto) 0.6 Eos # (Auto) 0.0 Baso # (Auto) 0.0 Nucleated RBC % (a uto) 0 Nucleated RBCs # 0.0 Sodium 138 Potassium 4.6 Chloride 100 Carbon Dioxide 26 Anion Gap 16.6 BUN 27 H Creatinine 0.8 GFR Calculation Not Reportable Glucose 123 H POC Glucose Calculated Osmolal ity 292 Calcium 8.2 L Phosphorus 3.2 Magnesium 2.2 Total Bilirubin 0.7 AST 30 ALT 47 H Alkaline Phosphata se 70 C-Reactive Protein 35.0 H NT-Pro-B Natriuret Pep 396 H Total Protein 6.4 L Albumin 2.9 L Globulin 3.5 Procalcitonin 09/02/21 09/02/21 20:54 17:10 WBC RBC Hgb Hct MCV MCH MCHC RDW Plt Count MPV Neut % (Auto) Lymph % (Auto) [place] % (Auto) Eos % (Auto) Baso % (Auto) Neut # (Auto) Lymph # (Auto) [place] # (Auto) Eos # (Auto) Baso # (Auto) Nucleated RBC % (a uto) Nucleated RBCs # Sodium Potassium Chloride Carbon Dioxide Anion Gap BUN Creatinine GFR Calculation Glucose POC Glucose 150 H 132 H Calculated Osmolal ity Calcium Phosphorus Magnesium Total Bilirubin AST ALT Alkaline Phosphata se C-Reactive Protein NT-Pro-B Natriuret Pep Total Protein Albumin Globulin Procalcitonin Vitals: Last Vital Signs Temp 98.0 F 09/03/21 11:59 Pulse 80 09/03/21 12:43 Resp 16 09/03/21 12:43 BP 125/79 09/03/21 11:59 Pulse Ox 88 L 09/03/21 13:22 Discharge Plan Discharge Patient Disposition: Home Condition: Stable Prescriptions: New Vitamin C 500 mg Tablet 500 mg PO BID 7 Days Qty: 14 RF: 0 atorvastatin 40 mg Tablet 40 mg PO BEDTIME 30 Days Qty: 30 RF: 1 zinc gluconate 50 mg Tablet 50 mg PO DAILY 7 Days Qty: 7 RF: 0 ProAir HFA 90 mcg/actuation HFA aerosol inhaler 1 inh inhalation Q6H PRN (Reason: shortness of breath or wheezing) Qty: 8.5 RF: 1 budesonide 90 mcg/actuation aerosol powdr breath activated 1 inh inhalation BID Qty: 1 RF: 1 Eliquis DVT-PE Treat 30D Start 5 mg (74 tabs) tablets,dose pack See Rx Instructions .ROUTE .COMPLEX Qty: 74 RF: 3 Tessalon Perles 100 mg capsule 100 mg PO BID PRN (Reason: cough) Qty: 30 RF: 0 dexamethasone 2 mg tablet 2 mg PO DAILY Qty: 7 RF: 0 Continued ondansetron 4 mg tablet,disintegrating 4 mg PO TID PRN (Reason: Nausea) RF: 0 Discharge Orders: Discharge Order (Routine); Ordered 09/03/21 Ordered By: Tao Ureña Other Ambulatory Orders: DME: Oxygen (Order) Location: None Selected Ordered By: Tao Ureña Referrals: Yuriy Kaur [Referring] - 2 weeks (will need new patient appointment closer to discharge either with Dr. Kaur or someone in the office. ) Discharge Diet: Regular Discharge Activity: Increase activity as tolerated Patient Instructions: Benzonatate (By mouth), Zinc Sulfate (By mouth), Ascorbic Acid (By mouth), Budesonide (Into the nose) (Rhinocort, Rhinocort Aqua), Atorvastatin (By mouth) (Lipitor), Dexamethasone (By mouth), Apixaban (By mouth), Using Oxygen at Home (GEN), Opioid Safety Discharge Attestations Time Spent in Discharge Care*: less than 30 min Specific Discharge Activities: educating patient, educating and/or supporting family/caregiver, discussing with pcp/other providers, discussing with case resource manager/social workers/dc planners, documenting/other paperwork and evaluating patient/reviewing data Status at Discharge: Cognitive status at discharge: cognitively intact, Behavioral status at discharge: cooperative, Functional status at discharge: independent ambulation Overall status at discharge: patient is progressing back to baseline Quality Metrics Clinical Quality Measures During this hospital stay, did patient experience: None Coding Level of Care Code Acute Chg FW DC note Diagnoses Acute respiratory failure with hypoxia J96.01 Bilateral pulmonary embolism I26.99 NSTEMI (non-ST elevated myocardial infarction) I21.4 Myocarditis due to COVID-19 virus U07.1; I40.0 Acute respiratory distress syndrome J80 Pneumonia due to COVID-19 virus U07.1; J12.82
== END 2021-09-03 16:45 | disposition home or self-care (01) | DRG 177 ==
LOC: ICU 09-01 14:17 → MEDSURG 09-01 18:36
PROVIDERS: Admitting Provider Family Medicine; Visit Provider Internal Medicine
DX: U07.1 COVID-19 (principal); J12.82 Pneumonia due to coronavirus disease 2019; J80 Acute respiratory distress syndrome; I21.A1 Myocardial infarction type 2; I26.94 Multiple subsegmental thrombotic pulmonary emboli without acute cor pulmonale; B33.22 Viral myocarditis; I11.9 Hypertensive heart disease without heart failure; Z87.891 Personal history of nicotine dependence
CPT/HCPCS: 36415; 36416; 36600; 51702; 80053; 80202; 82550; 82565; 82803; 82962; 83036; 83605; 83735; 83880; 84100; 84145; 84443; 84484; 85025; 85610; 86140; 86403; 87040; 87070; 87205; 87449; 87804; 93005; 93306; 93970; 94640; 94664; 96372; C9113; J0456; J0692; J1100; J1650; J1815; J1940; J3262; J3370; J3535; J7050; J7626